=== PATIENT | female | born 1985 | race Caucasian/White ===

== ENCOUNTER 2016-04-30 06:24 | Inpatient (IN) | payer OTHER ==
[2016-04-30] VITALS (29 sets, daily range): BP systolic 111–148; BP diastolic 62–95
[~2016-04-30] VITALS: Ht 160 cm; Wt 98.0 kg
[2016-04-30] MEDS ORDERED: PRENTAB9 PO (07:51)
[2016-04-30] MEDS ORDERED: LABE10TAB PO (07:52)
[2016-04-30] MEDS ORDERED: NOVOINJ12 SC ×2 (07:52→08:00)
[2016-04-30] MEDS ORDERED: INSUNSD SC ×2 (07:54→08:01)
[2016-04-30] MEDS ORDERED: METF1000 PO (08:02)
[2016-04-30] MEDS ORDERED: LACTATED RINGER'S 1000 ML IV STA (09:47)
[2016-04-30] MEDS: miSOPROStol 50 MCG 1/2 TAB (S0191) PO SCH ×2 (10:26→14:06)
[2016-04-30 10:30] LABS: MEAN CORPUSCULAR HEMOGLOBIN 34.2 pg (27.0-33.0); MEAN CORPUSCULAR HGB CONC 35.7 g/dl (32.0-36.5); RED CELL DISTRIBUTION WIDTH 12.7 % (11.5-14.5); WHITE BLOOD COUNT 13.5 K/mm3 (4.0-10.0)
[2016-04-30 10:58] LABS: ALBUMIN 3.1 GM/DL (3.2-5.2); ALBUMIN/GLOBULIN RATIO 0.97 (1.00-1.93); ALKALINE PHOSPHATASE 126 U/L (45-117); ALT/SGPT 16 U/L (12-78); ANION GAP 13 MEQ/L (8-16); AST/SGOT 16 U/L (15-37); BILIRUBIN,TOTAL 0.4 MG/DL (0.2-1.0); BLOOD UREA NITROGEN 9 MG/DL (7-18); CALCIUM LEVEL 8.5 MG/DL (8.5-10.1); CARBON DIOXIDE LEVEL 22 MEQ/L (21-32); CHLORIDE LEVEL 107 MEQ/L (98-107); CREATININE FOR GFR 0.55 MG/DL (0.55-1.02); GLOMERULAR FILTRATION RATE > 60.0 (>60); GLUCOSE, FASTING 70 MG/DL (70-105); POTASSIUM SERUM 4.3 MEQ/L (3.5-5.1); SODIUM LEVEL 142 MEQ/L (136-145); TOTAL PROTEIN 6.3 GM/DL (6.4-8.2)
--- NOTE | 2016-04-30 15:18 | HPE ---
DATE OF ADMISSION: 04/30/2016 30-year-old 4, para 2-0-1-2, estimated date of delivery 05/14/2016, here at 38 weeks for induction of labor due to chronic hypertension and insulin-dependent diabetes during . Denies loss of fluid or bleeding. Fetus is active. Last normal menstrual period 07/29/2015 for initial estimated date of delivery (CARRIE) of 05/04/2016, sonogram at 6 weeks confirmed the date of 05/14/2016. Anatomy scan within normal limits. Transferred to [facility] from [facility] at 27 weeks. complicated by pregestational diabetes, initially treated with metformin extended release 1000 mg twice a day. Switched to twice a day insulin at 32 weeks due to poor glucose control. Current regimen is NPH 22 and R 16 in the morning and NPH 14 and R 16 in the evening. On labetalol 100 mg twice a day for control of blood pressure. Has been followed by growth sonograms and nonstress test (NST) for antepartal testing. ALLERGIES: She has no known drug allergies. OBSTETRICAL HISTORY: 2005: Normal spontaneous vaginal , viable female 40 weeks, 7 pounds 4 ounces. 2006: Normal spontaneous vaginal , viable male 40 weeks, 9 pounds, induction of labor for oligohydramnios. 2009: Spontaneous (SAB). MEDICAL-SURGICAL HISTORY: Depression, hypertension, type 2 diabetes and cholecystectomy in 2004. FAMILY HISTORY: Noncontributory. SOCIAL HISTORY: Single. Family and partner is supportive. Denies tobacco, alcohol, drugs or abuse. OBJECTIVE: Prepregnancy weight 208, total weight gain 18 pounds. B+, antibody negative, varicella immune, rubella equivocal, VDRL, hepatitis B, HIV, gonorrhea and chlamydia all negative. First trimester screen within normal limits. Pre-eclamptic profile within normal limits. Group B Streptococcus is negative. She is in no apparent distress. Vital signs are stable. Heart rate is regular. Respirations are easy. Abdomen is soft, gravid, longitudinal lie. heart 145, moderate variability with accelerations. She has rare uterine contractions. Sterile vaginal exam 2-3 cm, 80%, and -3, far posterior and cephalic. ASSESSMENT: Multiparous at term, induction of labor for chronic hypertension and insulin-dependent diabetes, category one tracing. PLAN: Admit per consult Dr. Lord. Monitor glucose levels. Misoprostol ripening, consider Pitocin. The patient plans an epidural. Anticipate normal spontaneous vaginal .
[2016-04-30] MEDS ORDERED: LR 1,000 ML IV SCH (18:53)
[2016-04-30] MEDS ORDERED: OXYTOCIN DRIP 30 UNITS in APPROPRIATE DILUENT 1 EA IV SCH (19:00)
[2016-04-30] MEDS: ACETAMINOPHEN 500 MG TAB PO PRN (20:32)
[2016-04-30] MEDS ORDERED: FENTANYL 2MCG/ML ROPIVACAINE 0.2% NACL 250 ML CADD As Ordered ONE (21:06)
[2016-04-30] MEDS ORDERED: NALOXONE INJ 0.4 MG/1 ML VIAL (J2310) IV PRN (22:30)
[2016-04-30] MEDS ORDERED: REFRIGERATOR IV KEYS XX PRN (22:30)
[2016-04-30] MEDS ORDERED: ePHEDrine SULFATE 25 MG/5 ML(5MG/ML) SYRINGE IV PRN (22:30)
[2016-04-30] MEDS ORDERED: LACTATED RINGER'S 1000 ML IV PRN (22:30)
[2016-04-30] MEDS ORDERED: EPIDURAL COMMENT XX SCH (22:30)
[2016-04-30] MEDS ORDERED: EPIDURAL/PCA KEYS XX PRN (22:30)
[2016-04-30] MEDS ORDERED: ONDANSETRON 4MG/2ML VIAL (J2405) IV PRN (22:30)
[2016-04-30] MEDS ORDERED: FENTANYL/ROPIVACAINE/NACL CADD 250 ML EPIDURAL SCH (22:30)
[2016-04-30] MEDS ORDERED: diphenhydrAMINE INJ 50MG/ML VIAL (J1200) IV PRN (22:30)
[2016-05-01] VITALS (9 sets, daily range): BP systolic 118–153; BP diastolic 62–82
[2016-05-01 01:14] LABS: CORD GAS ABE A -8.6; CORD GAS HCO3 A 19.8 MEQ/L; CORD GAS O2 SAT A 42.5 %; CORD GAS PCO2 A 52.1 mmHg; CORD GAS PH A 7.198 UNITS; CORD GAS PO2 A 23.1 mmHg; CORD GAS SBC A 16.4 MEQ/L; CORD GAS TCO2 A 21.4 MEQ/L
[2016-05-01 01:16] LABS: CORD GAS ABE V -3.3; CORD GAS HCO3 V 22.3 MEQ/L; CORD GAS O2 SAT V 81.6 %; CORD GAS PCO2 V 42.3 mmHg; CORD GAS PH V 7.34 UNITS; CORD GAS PO2 V 36.8 mmHg; CORD GAS SBC V 21.3 MEQ/L; CORD GAS TCO2 V 23.6 MEQ/L
[2016-05-01] MEDS ORDERED: RHOGAM 300 MCG (1500 IU) INJ (J2790) IM SCH (01:30)
[2016-05-01] MEDS ORDERED: DIBUCAINE 1% OINTMENT 30GM TOP PRN (01:30)
[2016-05-01] MEDS ORDERED: ANUSOL HC CREAM 30GM TOP PRN (01:30)
[2016-05-01] MEDS ORDERED: MOM 30ML SUSPENSION UDC PO PRN (01:30)
[2016-05-01] MEDS ORDERED: MEASLES,MUMPS,RUBELLA VACCINE INJ (MMR-II) (90707) SC SCH (01:30)
[2016-05-01] MEDS ORDERED: METHYLERGONOVINE MALEATE 0.2 MG TAB PO PRN (01:30)
[2016-05-01] MEDS ORDERED: DOCUSATE SODIUM 100 MG CAP PO PRN (01:30)
[2016-05-01] MEDS ORDERED: miSOPROStol 200 MCG TAB (S0191) PR ONE (01:30)
[2016-05-01] MEDS: IBUPROFEN 800 MG TAB PO PRN ×3 (02:29→20:12)
[2016-05-01] MEDS: ACETAMINOPHEN 500 MG TAB PO PRN ×2 (03:47→14:28)
[2016-05-01] MEDS ORDERED: INFLUENZA QUADRIVALENT PF VACCINE 0.5ML SYRINGE/VIAL (90686) IM SCH (09:00)
[2016-05-01] MEDS: metFORMIN (GLUCOPHAGE) 1000 MG TABLET PO SCH ×2 (09:41→18:35)
[2016-05-01] MEDS: PRENATAL VITAMIN TAB PO SCH (09:41)
[2016-05-02 06:16] VITALS: BP 118/77
[2016-05-02] MEDS: PRENATAL VITAMIN TAB PO SCH (07:40)
[2016-05-02] MEDS: metFORMIN (GLUCOPHAGE) 1000 MG TABLET PO SCH ×2 (07:40→18:40)
[2016-05-02] MEDS: IBUPROFEN 800 MG TAB PO PRN (16:57)
[2016-05-02 18:36] VITALS: BP 143/91
[2016-05-02 21:00] VITALS: BP 146/86
[2016-05-03] MEDS: ACETAMINOPHEN 500 MG TAB PO PRN (01:42)
--- NOTE | 2016-05-03 01:53 | DN ---
DATE OF SERVICE: 05/01/2016 Utilized epidural for coping. Artificial rupture of membranes clear fluid at 2236. Fully dilated at 0038. Viable female delivered left occiput anterior (GILLES) restituted to left occiput posterior (LOP) at 0048. A 65-second shoulder dystocia encountered, resolved with position change and suprapubic pressure. Occult loop of cord noted at delivery at chest level. Spontaneous respirations with stimulation. Transitioned on maternal abdomen. Cord doubly clamped and cut once pulsations ceased. scores 7 and 9. Cord gases obtained. Placenta Ortiz and intact with three-vessel cord at 0057. Fundus firmed with massage and intravenous (IV) Pitocin bolus. However, brisk bleeding continued. Misoprostol 800 mcg per rectum (NE) given, 200 mcg had previously fallen on the floor, with good control of bleeding. Estimated blood loss 500 mL. First-degree posterior abrasion repaired with one suture of 3-0 Rapide. Infant weight 8 pounds 12 ounces, 3972 grams. Sponge, sharp and instrument count correct. Mother and baby doing well.
[2016-05-03 06:25] VITALS: BP 128/74
[2016-05-03] MEDS: metFORMIN (GLUCOPHAGE) 1000 MG TABLET PO SCH (08:28)
[2016-05-03] MEDS: PRENATAL VITAMIN TAB PO SCH (08:28)
[2016-05-03] MEDS ORDERED: IBUP-1114 PO (09:14)
[2016-05-03] MEDS ORDERED: ACET50TA PO (09:14)
[2016-05-03] MEDS ORDERED: METF1000 PO (09:14)
== END 2016-05-03 10:00 | disposition home or self-care (01) | DRG 560 ==
LOC: M LDI 06:24 → M OBS 05-01 03:15
PROVIDERS: ADMIT Advanced Practice Midwife; ATTEND Advanced Practice Midwife
PROC: 3E0P7GC Introduction of Other Therapeutic Substance into Female Reproductive, Via Natural or Artificial Opening (ICD-10-PCS; 2016-04-30)
PROC: 10E0XZZ Delivery of Products of Conception, External Approach (ICD-10-PCS; principal; 2016-05-01)
PROC: 10907ZC Drainage of Amniotic Fluid, Therapeutic from Products of Conception, Via Natural or Artificial Opening (ICD-10-PCS; 2016-05-01)
DX: O24.12 Pre-existing type 2 diabetes mellitus, in childbirth (principal); Z37.0 Single live birth; Z3A.38 38 weeks gestation of pregnancy; O10.02 Pre-existing essential hypertension complicating childbirth; E11.9 Type 2 diabetes mellitus without complications

== ENCOUNTER → 2017-03-04 | Outpatient (REF) | payer OTHER ==
[~2017-03-04] MED LIST: ACET50TA PO; AMOX500C PO; IBUP-1114 PO; INSUNSD; INSUNSD SC; INSURSD; LABE10TAB PO; METF10004 PO; NIFE20CA PO; NOVOINJ12 SC; PRENTAB9 PO
== END ==
LOC: M SFHCLERA 16:10
PROVIDERS: ATTEND Physician Assistant
DX: R30.0 Dysuria (principal)

== ENCOUNTER → 2017-04-19 | Outpatient (CLI) | payer OTHER ==
--- NOTE | 2017-04-19 10:37 | REP ---
Clinical: Anatomical evaluation. Comparison: 02/27/2017 . Findings: Examination demonstrates a single live intrauterine in variable presentation. motion is identified by technologist. Placenta is noted posteriorly and grade zero without evidence for placenta previa or abruption. Amniotic fluid volume is normal. Cervix measures 4.0 cm in length and appears closed. No evidence for nuchal cord. Gestational age by LMP 18 weeks 5 days with CARRIE 09/15/2017 . Gestational age by current measurements 18 weeks 3 days with CARRIE 09/17/2017 . FHR equals 141 beats per minute. BPD 4.0 cm 18 weeks 1 day HC 15.9 cm 18 weeks 5 days AC 13.3 cm 18 weeks 5 days FL 2.8 cm 18 weeks 3 days HL 2.8 cm 18 weeks 6 days HC/AC ratio 1.20 Estimated weight 248 grams ( 43rd percentile). Anatomical assessment demonstrates normal structures including cranium, choroid plexus, cavum, cerebellum/posterior fossa, lungs, diaphragm, stomach, cord insertion/three-vessel cord, kidneys/bladder, spine, and upper extremities. Limited evaluation of the facial features, heart/ventricular outflow tracts and lower extremities noted. Impression: Single live intrauterine demonstrating appropriate interval growth. Anatomical limitations as described above may warrant reevaluation and follow-up. Signed by Maninder Barth MD 04/19/2017 10:29 A
== END ==
LOC: M SMT 09:14
PROVIDERS: ATTEND Specialist
DX: O24.111 Pre-existing type 2 diabetes mellitus, in pregnancy, first trimester (principal); Z3A.18 18 weeks gestation of pregnancy

== ENCOUNTER → 2017-06-13 | Outpatient (CLI) | payer OTHER ==
[2017-06-13 19:47] LABS: BASO % 0.2 % (0.0-1.0); EOS # 0.2 10^3/uL (0.0-0.50); EOS % 1.2 % (0.0-3.0); IMMATURE GRANULOCYTE % 0.9 % (0-3.0); LYMPH # 1.4 10^3/uL (1.5-4.5); LYMPH % 8.7 % (24.0-44.0); MEAN CORPUSCULAR HEMOGLOBIN 32.3 pg (27.0-33.0); MEAN CORPUSCULAR HGB CONC 33.3 g/dl (32.0-36.5); MEAN CORPUSCULAR VOLUME 96.8 fl (80.0-96.0); MONO % 5.9 % (0.0-5.0); NEUTROPHILS # 13.4 10^3/uL (1.8-7.7); NEUTROPHILS % 83.1 % (36.0-66.0); PLATELET COUNT, AUTOMATED 198 10^3/uL (150-450); RED BLOOD COUNT 4.03 10^6/uL (4.00-5.40); RED CELL DISTRIBUTION WIDTH 13.2 % (11.5-14.5); WHITE BLOOD COUNT 16.2 10^3/uL (4.0-10.0)
[2017-06-13 21:06] LABS: ESTIMATED AVERAGE GLUCOSE 151 MG/DL (60-110); HEMOGLOBIN A1c 6.9 %
== END ==
LOC: M SMT 13:01
DX: Z34.82 Encounter for supervision of other normal pregnancy, second trimester (principal); O24.112 Pre-existing type 2 diabetes mellitus, in pregnancy, second trimester
CPT/HCPCS: 83036

== ENCOUNTER → 2017-07-22 | Outpatient (CLI) | payer OTHER | LOC: M SMT 12:57 | DX: O24.113 Pre-existing type 2 diabetes mellitus, in pregnancy, third trimester (principal); Z3A.33 33 weeks gestation of pregnancy | CPT/HCPCS: 76815 ==

== ENCOUNTER → 2017-08-12 | Outpatient (CLI) | payer OTHER | LOC: M RAD 11:11 | DX: O24.113 Pre-existing type 2 diabetes mellitus, in pregnancy, third trimester (principal); Z3A.32 32 weeks gestation of pregnancy | CPT/HCPCS: 76816 ==

== ENCOUNTER 2017-08-19 08:40 | Outpatient (CLI) | payer OTHER ==
[2017-08-19] MEDS ORDERED: LR 1,000 ML IV (09:45)
[2017-08-19] MEDS ORDERED: LACTATED RINGER'S 1000 ML IV (09:45)
[2017-08-19 10:17] LABS: HEMATOCRIT 39.7 % (36.0-47.0); MEAN CORPUSCULAR HEMOGLOBIN 33.3 pg (27.0-33.0); MEAN CORPUSCULAR HGB CONC 35.3 g/dl (32.0-36.5); MEAN CORPUSCULAR VOLUME 94.5 fl (80.0-96.0); PLATELET COUNT, AUTOMATED 183 10^3/uL (150-450); RED CELL DISTRIBUTION WIDTH 14.1 % (11.5-14.5); WHITE BLOOD COUNT 13.9 10^3/uL (4.0-10.0)
[2017-08-19 10:46] LABS: ALBUMIN 2.7 GM/DL (3.2-5.2); ALBUMIN/GLOBULIN RATIO 0.79 (1.00-1.93); ALKALINE PHOSPHATASE 184 U/L (45-117); ALT/SGPT 13 U/L (12-78); ANION GAP 10 MEQ/L (8-16); AST/SGOT 30 U/L (7-37); BILIRUBIN,TOTAL 0.6 MG/DL (0.2-1.0); BLOOD UREA NITROGEN 9 MG/DL (7-18); CALCIUM LEVEL 8.9 MG/DL (8.5-10.1); CARBON DIOXIDE LEVEL 21 MEQ/L (21-32); CHLORIDE LEVEL 110 MEQ/L (98-107); CREATININE FOR GFR 0.52 MG/DL (0.55-1.30); GLOMERULAR FILTRATION RATE > 60.0 (>60); GLUCOSE, FASTING 150 MG/DL (70-100); POTASSIUM SERUM 4.3 MEQ/L (3.5-5.1); SODIUM LEVEL 141 MEQ/L (136-145); TOTAL PROTEIN 6.1 GM/DL (6.4-8.2)
[2017-08-19 11:20] LABS: BEDSIDE GLUCOSE 151 MG/DL (70-105)
[2017-08-19 12:40] LABS: TOTAL PROTEIN,RANDOM URINE 85.4 MG/DL (0.0-12.0)
[2017-08-19 13:52] LABS: LDH LACTATE DEHYDROGENASE 313 U/L (84-246); URIC ACID 6.8 MG/DL (2.6-6.0)
== END 2017-08-19 14:08 | disposition home or self-care (01) ==
LOC: M LDO 08:40
DX: O99.89 Other specified diseases and conditions complicating pregnancy, childbirth and the puerperium (principal); Z3A.36 36 weeks gestation of pregnancy; O99.353 Diseases of the nervous system complicating pregnancy, third trimester; R51 Headache; O24.113 Pre-existing type 2 diabetes mellitus, in pregnancy, third trimester; O10.913 Unspecified pre-existing hypertension complicating pregnancy, third trimester; Z91.14 Patient's other noncompliance with medication regimen
CPT/HCPCS: 76815

== ENCOUNTER 2017-08-25 18:51 | Inpatient (IN) | payer OTHER ==
[2017-08-25 20:09] LABS: HEMATOCRIT 35.8 % (36.0-47.0); HEMOGLOBIN 12.8 g/dl (12.0-15.5); MEAN CORPUSCULAR HEMOGLOBIN 33.9 pg (27.0-33.0); MEAN CORPUSCULAR HGB CONC 35.8 g/dl (32.0-36.5); MEAN CORPUSCULAR VOLUME 94.7 fl (80.0-96.0); PLATELET COUNT, AUTOMATED 198 10^3/uL (150-450); RED BLOOD COUNT 3.78 10^6/uL (4.00-5.40); RED CELL DISTRIBUTION WIDTH 13.6 % (11.5-14.5)
[2017-08-25] MEDS: miSOPROStol 50 MCG 1/2 TAB (S0191) PO (20:49)
[2017-08-26] MEDS: miSOPROStol 50 MCG 1/2 TAB (S0191) PO (00:51)
[2017-08-26 01:06] LABS: BEDSIDE GLUCOSE 131 MG/DL (70-105)
[2017-08-26 01:06] LABS: BEDSIDE GLUCOSE 85 MG/DL (70-105)
[2017-08-26 01:06] LABS: BEDSIDE GLUCOSE 95 MG/DL (70-105)
[2017-08-26 03:21] LABS: BEDSIDE GLUCOSE 101 MG/DL (70-105)
[2017-08-26] MEDS: LR 1,000 ML IV ×2 (05:06→08:42)
[2017-08-26] MEDS: OXYTOCIN DRIP 30 UNITS in APPROPRIATE DILUENT 1 EA IV ×3 (05:06→12:42)
[2017-08-26 06:55] LABS: BEDSIDE GLUCOSE 99 MG/DL (70-105)
[2017-08-26 06:55] LABS: BEDSIDE GLUCOSE 103 MG/DL (70-105)
[2017-08-26] MEDS ORDERED: FENTANYL 2MCG/ML ROPIVACAINE 0.2% IN 0.9% NACL 200ML IVBAG As Ordered (08:21)
[2017-08-26] MEDS: PRENATAL VITAMINS CHEWABLE TABLET PO (09:00)
[2017-08-26] MEDS: miSOPROStol 200 MCG TAB (S0191) PR (12:02)
[2017-08-26 12:32] LABS: CORD GAS ABE A -3.2; CORD GAS HCO3 A 26.2 MEQ/L; CORD GAS O2 SAT A 41.9 %; CORD GAS PCO2 A 63.8 mmHg; CORD GAS PH A 7.231 UNITS; CORD GAS PO2 A 22.2 mmHg; CORD GAS SBC A 20.2 MEQ/L; CORD GAS TCO2 A 28.1 MEQ/L
[2017-08-26 12:34] LABS: CORD GAS ABE V -5.6; CORD GAS HCO3 V 18.4 MEQ/L; CORD GAS O2 SAT V 87.1 %; CORD GAS PCO2 V 32.7 mmHg; CORD GAS PH V 7.368 UNITS; CORD GAS SBC V 19.7 MEQ/L; CORD GAS TCO2 V 19.4 MEQ/L
[2017-08-26] MEDS ORDERED: DOCUSATE SODIUM 100 MG CAP PO (12:45)
[2017-08-26] MEDS ORDERED: DIBUCAINE 1% OINTMENT 30GM TOP (12:45)
[2017-08-26] MEDS ORDERED: ANUSOL HC CREAM 30GM TOP (12:45)
[2017-08-26] MEDS: CARBOPROST TROMETHAMINE 250 MCG/ML AMP IM (12:50)
[2017-08-26 12:55] LABS: BEDSIDE GLUCOSE 105 MG/DL (70-105)
[2017-08-26] MEDS ORDERED: LABETALOL HCL 100 MG/20 ML VIAL As Ordered (13:24)
[2017-08-26] MEDS: LABETALOL HCL 100 MG/20 ML VIAL IV (13:31)
[2017-08-26] MEDS: IBUPROFEN 800 MG TAB PO ×2 (14:06→22:17)
[2017-08-26] MEDS: metFORMIN (GLUCOPHAGE) 500 MG TAB PO (18:27)
[2017-08-26] MEDS: RHOGAM 300 MCG (1500 IU) INJ (J2790) IM (18:43)
[2017-08-26] MEDS: MEASLES,MUMPS,RUBELLA VACCINE INJ (MMR-II) (90707) SC (18:44)
[2017-08-26] MEDS: LABETALOL 200 MG TAB PO (22:22)
[2017-08-27 06:34] LABS: HEMATOCRIT 26.6 % (36.0-47.0); MEAN CORPUSCULAR HEMOGLOBIN 34.4 pg (27.0-33.0); MEAN CORPUSCULAR HGB CONC 35.7 g/dl (32.0-36.5); MEAN CORPUSCULAR VOLUME 96.4 fl (80.0-96.0); PLATELET COUNT, AUTOMATED 184 10^3/uL (150-450); RED BLOOD COUNT 2.76 10^6/uL (4.00-5.40); RED CELL DISTRIBUTION WIDTH 14.3 % (11.5-14.5); WHITE BLOOD COUNT 16.1 10^3/uL (4.0-10.0)
[2017-08-27 06:38] LABS: HEMOGLOBIN 9.5 g/dl (12.0-15.5)
[2017-08-27] MEDS: PRENATAL VITAMINS CHEWABLE TABLET PO (08:16)
[2017-08-27] MEDS: metFORMIN (GLUCOPHAGE) 500 MG TAB PO ×2 (08:17→19:32)
[2017-08-27] MEDS: IBUPROFEN 800 MG TAB PO (14:59)
[2017-08-27] MEDS: ACETAMINOPHEN 500 MG TAB PO (22:33)
[2017-08-28 06:22] LABS: BEDSIDE GLUCOSE 137 MG/DL (70-105)
[2017-08-28 06:22] LABS: BEDSIDE GLUCOSE 129 MG/DL (70-105)
[2017-08-28] MEDS: PRENATAL VITAMINS CHEWABLE TABLET PO (07:46)
[2017-08-28] MEDS: metFORMIN (GLUCOPHAGE) 500 MG TAB PO (07:47)
[2017-08-28 10:35] LABS: BEDSIDE GLUCOSE 178 MG/DL (70-105)
== END 2017-08-28 10:55 | disposition home or self-care (01) | DRG 560 ==
LOC: M LDI 18:51 → M OBS 08-26 17:21
PROVIDERS: Specialist
PROC: 3E0DXGC Introduction of Other Therapeutic Substance into Mouth and Pharynx, External Approach (ICD-10-PCS; 2017-08-25)
PROC: 10E0XZZ Delivery of Products of Conception, External Approach (ICD-10-PCS; principal; 2017-08-26)
DX: O24.813 Other pre-existing diabetes mellitus in pregnancy, third trimester (principal); Z37.0 Single live birth; Z3A.37 37 weeks gestation of pregnancy; O10.92 Unspecified pre-existing hypertension complicating childbirth; Z91.19 Patient's noncompliance with other medical treatment and regimen; O66.0 Obstructed labor due to shoulder dystocia; O72.1 Other immediate postpartum hemorrhage

== ENCOUNTER → 2017-11-17 | Outpatient (CLI) | payer OTHER | LOC: M EKG 13:21 | DX: I49.9 Cardiac arrhythmia, unspecified (principal); I10 Essential (primary) hypertension; E11.9 Type 2 diabetes mellitus without complications | CPT/HCPCS: 93005 ==

== ENCOUNTER 2017-11-25 12:55 | Day surgery (SDC) | payer OTHER ==
[~2017-11-25 12:55] MED LIST changes: -ACET50TA PO; -AMOX500C PO; +GLYCOPYRROLATE INJ 0.2 MG/ML 2 ML VIAL As Ordered; -IBUP-1114 PO; -INSUNSD; -INSUNSD SC; -INSURSD; +KETOROLAC 60 MG/2 ML VIAL (J1885) As Ordered; -LABE10TAB PO; +LIDOCAINE 2% INJ 100 MG/5 ML SDV (FOR ANES.) As Ordered; +LR 1,000 ML IV; -METF10004 PO; +MIDAZOLAM INJ 2 MG/2 ML VIAL (J2250) As Ordered; +NEOSTIGMINE 10 MG/10 ML VIAL (J2710) As Ordered; -NIFE20CA PO; -NOVOINJ12 SC; +ONDANSETRON 4MG/2ML VIAL (J2405) As Ordered; -PRENTAB9 PO; +PROPOFOL 200 MG/20 ML VIAL As Ordered; +ROCURONIUM BROMIDE 50 MG/5 ML VIAL As Ordered; +dexameTHASONE 4 MG/ML 1ML VIAL (J1100) As Ordered; +fentaNYL 100 MCG/2 ML INJECTION (J3010) As Ordered
[2017-11-25 13:29] LABS: HEMATOCRIT 43.1 % (36.0-47.0); HEMOGLOBIN 14.5 g/dl (12.0-15.5); MEAN CORPUSCULAR HEMOGLOBIN 28.7 pg (27.0-33.0); MEAN CORPUSCULAR HGB CONC 33.6 g/dl (32.0-36.5); MEAN CORPUSCULAR VOLUME 85.3 fl (80.0-96.0); PLATELET COUNT, AUTOMATED 367 10^3/uL (150-450); RED BLOOD COUNT 5.05 10^6/uL (4.00-5.40); WHITE BLOOD COUNT 9.5 10^3/uL (4.0-10.0)
[2017-11-25 13:49] LABS: BEDSIDE GLUCOSE 100 MG/DL (70-105)
[2017-11-25 13:57] LABS: CONTROL LINE UCG INT CTR LINE PRESENT; URINE PREG TEST NEGATIVE (NEGATIVE)
[2017-11-25] MEDS: BUPIVACAINE HCL 0.25% 30 ML VIAL As Ordered ×3 (15:08)
[2017-11-25] MEDS ORDERED: fentaNYL 100 MCG/2 ML INJECTION (J3010) As Ordered ×3 (15:12)
[2017-11-25] MEDS ORDERED: SUGAMMADEX SODIUM 500 MG/5 ML VIAL (BRIDION) As Ordered ×3 (15:16)
[2017-11-25] MEDS ORDERED: LABETALOL HCL 100 MG/20 ML VIAL As Ordered ×3 (15:29)
[2017-11-25] MEDS: LABETALOL HCL 100 MG/20 ML VIAL IV ×12 (15:30→15:45)
[2017-11-25] MEDS: fentaNYL 100 MCG/2 ML INJECTION (J3010) IV ×18 (15:37→16:15)
[2017-11-25] MEDS ORDERED: PERCOCET 5MG/325MG TAB PO ×6 (15:45)
[2017-11-25] MEDS ORDERED: ONDANSETRON 4MG/2ML VIAL (J2405) IV ×3 (15:45)
[2017-11-25] MEDS ORDERED: LR 1,000 ML IV ×6 (15:45)
[2017-11-25] MEDS: PERCOCET 5MG/325MG TAB PO ×6 (16:09→18:28)
== END 2017-11-25 20:40 | disposition home or self-care (01) ==
LOC: M SDC 12:55
DX: Z30.2 Encounter for sterilization (principal); I10 Essential (primary) hypertension; E11.9 Type 2 diabetes mellitus without complications; Z79.899 Other long term (current) drug therapy
CPT/HCPCS: 58671